=== PATIENT | male | born 1940 | race Caucasian/White ===

== ENCOUNTER → 2017-07-17 06:00 | Outpatient (REF) | payer MEDICARE, SELFPAY ==
[2017-07-17 07:56] LABS: Hematocrit 36.1 % (40-54); Hemoglobin 11.9 g/dl (13.0-16.5); Mean Corpuscular Hgb 30.4 pg (27.0-32.0); Mean Corpuscular Volume 92.3 fL (80-94); Mean Platelet Vol. 10.6 fl (6.2-12.0); Platelet Count 122 K/mm3 (150-450); RBC Distribution Width CV 16.5 % (11.6-14.6); RBC Distribution Width SD 53.6 fl (35.1-43.9); Red Blood Count 3.91 M/mm3 (4.6-6.2); White Blood Count 14.5 K/mm3 (4.4-11.0)
[2017-07-17 07:59] LABS: Scan Indicated on CBC? Y/N NO
[2017-07-17 08:08] LABS: Anion Gap 15 (5-15); BUN 78 mg/dL (7-18); BUN/Creat Ratio 37.1 RATIO (10-20); Calcium,Total 8.2 mg/dL (8.5-10.1); Chloride 92 mmol/L (98-107); EST Glomerular Filtration Rate 33 mL/min (>60); Est Glom Filt Rate - Afr Amer 40 mL/min (>60); Glucose 177 mg/dL (70-110); Potassium 4.6 mmol/L (3.5-5.1); Sodium Level 127 mmol/L (136-145)
== END ==
LOC: OLS.ACW100 06:00
PROVIDERS: Visit Provider Family Medicine
DX: I35.0 Nonrheumatic aortic (valve) stenosis (principal); J44.9 Chronic obstructive pulmonary disease, unspecified; I50.9 Heart failure, unspecified; J96.11 Chronic respiratory failure with hypoxia; I48.0 Paroxysmal atrial fibrillation
CPT/HCPCS: 36415; 80048; 85027